=== PATIENT | female | born 1990 | race Caucasian/White ===

== ENCOUNTER 2016-11-14 21:34 | Emergency (ER) | payer OTHER ==
[~2016-11-14] VITALS: Ht 172.7 cm; Wt 76.8 kg
[2016-11-14 21:53] VITALS: BP 123/63; PULSE 98; RESP 16; O2SAT 98
--- NOTE | 2016-11-14 22:35 | ED.REPORT ---
HPI-General Illness Date of Service Nov 14, 2016 ED Provider: Dr. Frederick Hanley M.D. A 26 year old female at 17 weeks with a history of preeclampsia in prior and reactive airways disease as an infant presents to the ED with lightheadedness onset 16:30 today. Associated symptoms include nausea, diaphoresis, shortness of breath, and generalized weakness. The patient denies recent fever, cough, or vomiting. She measured her blood glucose level at 74 and her BP at 111/64 at onset of her symptoms. The patient then measured her blood glucose at 84 at 21:30 after eating. The patient does not normally have problems with her blood glucose levels but she occasionally becomes lightheaded with hypoglycemia. She has not had similar symptoms during previous pregnancies. Nursing Notes Stated Complaint: 17 WEEKS , BLOOD SUGAR LOW, FEELS OFF Chief Complaint: General Complaint Nursing Notes Reviewed: Yes Allergies: Coded Allergies: No Known Allergies (Unverified , 11/14/16) General Time Seen by MD: 22:35 Chief Complaint Other (Lightheadedness) Hx Obtained From: Patient Arrived By: Walk-in Sudden in Onset?: Yes Onset Occurred: 5 - 8 hours ago Symptom Duration: Since onset Severity: Current: No pain currently Severity: Maximum: No pain Associated with: Reports: Nausea, Shortness of breath, Weakness, Denies: Fever, Vomiting Pertinent Negative: Relieved by nothing Recent Healthcare: No recent doctor visit Similar Sx Previous: No Past Medical History Past Medical History Preeclampsia in first Hx of reactive airways disease as an Past Surgical History None reported Smoking History Former Smoker Social History Other Social History: Good social support Ambulatory Status Independent Review of Systems Full Review of Systems Constitutional: Reports: Weakness - generalized, Denies: Fever Respiratory: Reports: Shortness of breath, Denies: Non-productive cough GI: Reports: Nausea, Denies: Vomiting Skin: Reports Diaphoresis Neurologic: Reports: Lightheaded Complete sys rev & neg: except as marked. Physical Exam Vital Signs Vital Signs Date Time Temp Pulse Resp B/P Pulse Ox O2 Delivery O2 Flow Rate FiO2 11/14/16 21:53 37.6 98 16 123/63 98 Initial VS: Reviewed Respiratory: Breath sounds normal, Clear to auscultation, No respiratory distress Cardiovascular: Regular rate & rhythm, Heart sounds normal Skin: Warm, Dry, No cyanosis Neurologic: Alert, Oriented, Nonfocal Psychiatric: Mood/affect normal, Behavior normal, Normal thought content General/Constitutional: Awake, Alert, No acute distress Head / Eyes: Atraumatic, Normocephalic, No scleral icterus, Conjunctiva NL ENT: Atraumatic, Airway patent, Mucous membranes moist, Pharynx NL, Tympanic membs NL, Ext aud canal NL Neck: Supple, Full range of motion, No adenopathy, Non-tender, No JVD Interpretation & Diagnostics URINE : Positive URINE DIPSTICK: 1.010 sp gravity 8 pH Normal Glucose Normal Urobilinogen Otherwise Negative Lab Results Interpretation Result Diagram: 11/14/16224711/14/162247 Test 11/14/16 22:48 11/14/16 23:30 White Blood Count 12.0th/mm3 (3.8-10.1) Red Blood Count 3.89mil/mm3 (3.90-5.20) Hemoglobin 11.8g/dL (12.0-15.6) Hematocrit 34.9% (35.0-46.0) Mean Corpuscular Volume 89.7fL (81-100) Mean Corpuscular Hemoglobin 30.3pg (27.0-35.0) Mean Corpuscular Hemoglobin Concent 33.8% (32.0-37.0) Red Cell Distribution Width 12.2% (12.3-15.4) Platelet Count 312bil/L (150-400) Neutrophils (%) (Auto) 64.6% (40-74) Lymphocytes (%) (Auto) 24.7% (14-46) Monocytes (%) (Auto) 7.1% (4-12) Eosinophils (%) (Auto) 3.0% (0-5) Basophils (%) (Auto) 0.3% (0-3) Band Neutrophils % 0% (1-5) Sodium Level 137mEq/L (134-144) Potassium Level 3.9mEq/L (3.5-5.2) Chloride Level 102mEq/L (97-108) Carbon Dioxide Level 23mmol/L (18-29) Blood Urea Nitrogen 10mg/dL (6-20) Creatinine 0.30mg/dL (0.57-1.00) Estimat Glomerular Filtration Rate 392mL/min (>59) Glucose Level 98mg/dL (60-99) Calcium Level 9.0mg/dL (8.5-10.1) Magnesium Level 1.8mg/dL (1.6-2.6) Total Bilirubin 0.2mg/dL (0.0-1.2) Aspartate Amino Transf (AST/SGOT) 21U/L (0-50) Alanine Aminotransferase (ALT/SGPT) 18U/L (0-32) Alkaline Phosphatase 47U/L (25-150) Total Protein 6.8g/dL (6.4-8.4) Albumin 3.8g/dL (3.4-5.0) Hold Aguilar Top Tube Received (Received) Urine Color Yellow (YELLOW) Urine Appearance Hazy (CLEAR,HAZY) Urine pH 7.5 (5.0-8.0) Urine Specific [place] 1.015 (1.003-1.035) Urine Protein Negativemg/dL (NEG,TRACE) Urine Glucose (UA) Negativemg/dL (NEGATIVE) Urine Ketones Negativemg/dL (NEGATIVE) Urine Occult Blood Negative (NEGATIVE) Urine Nitrite Negative (NEGATIVE) Urine Bilirubin Negative (NEGATIVE) Urine Urobilinogen Normalmg/dL (NORMAL) Urine Leukocyte Esterase Negative (NEGATIVE) Urine RBC 0-2/hpf (0-2) Urine WBC 0-5/hpf (0-5) Urine Epithelial Cells Few/hpf (NONE-MOD) Urine Crystals Amorphous phosphates Urine Bacteria Few/hpf (NONE-FEW) Urine Hyaline Casts None/lpf (NONE) Urine Granular Casts None seen (NONE SEEN) Urine Waxy Casts None seen (NONE SEEN) Urine Red Blood Cell Casts None seen (NONE SEEN) Urine White Blood Cell Casts None seen (NONE SEEN) Urine Mucus None seen (None Seen) Urine Trichomonas None seen (NONE SEEN) Urine Yeast None (NONE SEEN) Urinalysis Comment None Urine Culture Reflexed Not indicated Re-Eval/Medical Decision Med Decision/Clinical Course 26-year-old with a vague sense of malaise and weakness, took her sugar with a borrowed a glucometer and found to be seventy-four. She was defiantly normal at that point but decided that her "low sugar" was the source of her symptoms. Source or a malaise is not totally clear, but she had just eaten and may in fact have had a decline in her sugar from a high level to a normal level. She has no diabetes no other risk factors and no reason to have hypoglycemia's specifically. Urinalysis was done looking for UTI and this was negative. No other findings on exam or history. Home for follow up with OB and PCP. Discharged in stable condition. Time of Eval: 23:33 Patient Status: Condition improved Re-Evaluation/Progress Note: Discussed with patient lab results, diagnosis, and plan for discharge. Follow-up and return to the ER instructions given. Patient agrees with plan for care and all questions were addressed. Counseled Regarding: Diagnosis, Lab results, Need for follow-up, When/why to return to ED Discharge & Departure Shift Change Sign-Out Response to Therapy: Improved Primary Impression: Discomfort during Disposition: Home Discharge Condition All VS Reviewed: Yes Condition: Improved Additional Instructions: We suggest small frequent feedings, and avoidance of simple sugars. Follow-up with your doctor in the office. Here urinalysis is negative for infection. Return if any immediate issues. Referrals: Rajinder Damian MD (PCP) [place] Attestation Portions of this note were transcribed by Negra Ernst. I, Dr. Hanley, personally performed the history, physical exam, and medical decision-making; I reviewed and confirmed the accuracy of the information in the transcribed note. Signed by: Matteo Vasquez, 11/15/2016, 00:20 copies to: Rajinder Damian MD, Christopher W MD Nov 14, 2016 22:35 NEGRA ERNST Nov 14, 2016 23:00
[2016-11-14 22:55] LABS: BASOPHILS % (AUTO) 0.3 % (0-3); MONOCYTES % (AUTO) 7.1 % (4-12); Mean Corpuscular Hemoglobin 30.3 pg (27.0-35.0); Mean Corpuscular Volume 89.7 fL (81-100); NEUTROPHILS % (AUTO) 64.6 % (40-74); Platelet Count 312 bil/L (150-400)
[2016-11-14 23:27] LABS: Magnesium 1.8 mg/dL (1.6-2.6)
[2016-11-14 23:38] LABS: APPEARANCE,URINE HAZY (CLEAR,HAZY); COLOR,URINE YELLOW (YELLOW); OCCULT BLOOD,URINE NEGATIVE (NEGATIVE); PH,URINE 7.5 (5.0-8.0); UROBILINOGEN,URINE NORMAL (NORMAL)
== END 2016-11-14 23:34 | disposition home or self-care (01) ==
LOC: SED 21:34
DX: O26.92 Pregnancy related conditions, unspecified, second trimester (principal); Z87.891 Personal history of nicotine dependence; Z87.09 Personal history of other diseases of the respiratory system; Z87.59 Personal history of other complications of pregnancy, childbirth and the puerperium; Z3A.17 17 weeks gestation of pregnancy

== ENCOUNTER 2017-04-17 02:44 | Inpatient (IN) | payer OTHER ==
[~2017-04-17] VITALS: Ht 170.2 cm; Wt 94.8 kg
[2017-04-18] MEDS ORDERED: Oxytocin 30 Units/500 mL LR 30 UNITS in IV Premix 1 EACH IV PRN ×2 (07:40→19:10)
[2017-04-18] MEDS ORDERED: Hemorrhage Kit, Post Partum XX ONE (07:40)
[2017-04-18] MEDS ORDERED: Sodium Chloride LOK Flush 10 mL Syringe IVFLUSH PRN ×2 (07:40)
[2017-04-18] MEDS ORDERED: Ondansetron 2 mg/mL 2 mL Inj IVPUSH PRN ×2 (07:40→23:15)
[2017-04-18] MEDS ORDERED: fentaNYL-PF 50 mCg/mL 2 mL Inj IVPUSH PRN (07:40)
[2017-04-18] MEDS ORDERED: diphenhydrAMINE 50 mg Capsule PO PRN (07:40)
[2017-04-18] MEDS ORDERED: Methylergonovine 0.2 mg/mL Inj IM PRN (07:40)
[2017-04-18] MEDS ORDERED: Carboprost 250 mCg/mL Inj IM PRN (07:40)
[2017-04-18] MEDS ORDERED: Oxytocin 10 Unit/mL Inj IM PRN (07:40)
[2017-04-18] MEDS ORDERED: Penicillin G K Inj 5,000,000 UNITS in Dextrose 5% Minibag Plus 100 ML IV ONE (07:40)
[2017-04-18] MEDS ORDERED: Multivit-Miner-Folic Acid-Iron Tablet PO SCH (08:30)
[2017-04-18 08:38] LABS: Mean Corpuscular Hemoglobin 28.9 pg (27.0-35.0); Mean Corpuscular Volume 88.5 fL (81-100)
[2017-04-18] MEDS: Misoprostol 25 mCg/0.25 Tablet VAGINAL SCH ×2 (09:04→12:36)
[2017-04-18] MEDS: Penicillin G K Inj 3,000,000 UNITS in IV Premix 1 EACH IV SCH (11:00)
--- NOTE | 2017-04-18 19:34 | PROG NOTE ---
[address] [address] PROGRESS NOTE PATIENT: BRENNAN OLIVA : 1990 MR#: [id number] ADMIT: 04/18/2017 JOB ID: [id number] DATE: 04/18/2017 I returned a little after 6 p.m. and rechecked the patient. She is having some occasional contractions, nothing particularly strong. Her cervical examination shows her to be a centimeter dilated, 60% to 70% effaced, -3 station, vertex position. heart tracing remains a category 1. I discussed options with patient which include simply going home and waiting, overnight Cervidil, or balloon Ma catheter. She notes her 2nd was successfully induced with a balloon Ma catheter and she would like to proceed with the same intervention. ASSESSMENT: 1. at 39-2/7 weeks. 2. Induction arranged for history of HELLP (hemolysis, elevated liver enzymes, low platelet count) syndrome at term with her first and possible history of shoulder dystocia with her second. PLAN: Reviewed risks and benefits of the procedure. Patient placed in stirrups. Sterile speculum inserted. Cervix identified and cleaned with Betadine. A double balloon Ma catheter was, after several attempts and repositioning, successfully inserted and each balloon inflated to 80 cc total. Patient tolerated the procedure very well. heart tracing remained reassuring throughout. H and H returned at 11.1 and 34.0, platelets adequate at 304. Blood type O-positive, antibody screen negative. Discussed plan to leave balloon catheter in for 12 hours, then start oxytocin. If the balloon falls out sooner, we can start oxytocin at that time. I encouraged nursing to start GBS prophlyaxis antibiotics once she begins regular contractions. MTDD
[2017-04-18] MEDS: Acyclovir 400 mg Tablet PO SCH (21:12)
[2017-04-18] MEDS ORDERED: Penicillin G K 5,000,000 UNITS/100 ML D5W IV ONE ×2 (22:25)
[2017-04-18] MEDS: Lactated Ringer's 1,000 ML IV PRN (22:59)
[2017-04-18] MEDS ORDERED: Lactated Ringer's 1,000 ML IV SCH (23:12)
[2017-04-18] MEDS ORDERED: Lactated Ringer's 500 ML IV ONE (23:12)
[2017-04-18] MEDS ORDERED: Atropine 1 mg/10 mL (Code) Syringe IVPUSH PRN (23:15)
[2017-04-18] MEDS ORDERED: fentaNYL 2 mCg/mL-Bupiv 0.125% 100 ML EPIDURAL SCH (23:15)
[2017-04-18] MEDS ORDERED: EPHEDrine Sulfate 50 mg/mL Inj IVPUSH PRN (23:15)
--- NOTE | 2017-04-18 23:16 | PCM.HPANE ---
Patient Data Surgeon Admitting Provider:Rajinder Damian MD Attending Provider:Rajinder Damian MD Primary Care Physician:Rajinder Damian MD Other Provider:Everette Ardon Anesthesia Reason for Visit Induction INDUCTION Ht/WT & BMI Body Mass Index Allergies Coded Allergies: No Known Allergies (Unverified , 11/14/16) Past Anesthesia History Anesthesia History: Denies:: Abnormal Airway, Anesthesia Reactions, Difficult Intubation, Fam Anesthesia Reaction, Fam Malignant Hypertherm, Malignant Hyperthermia Diabetes History Hx Diabetes?: No Medications Hypertension Medication: No Home Meds Incl Beta Hang: No History History of ENT Problems?: No HEENT History: Denies:: Abnormal Airway Cataracts Difficult Intubation Dysphagia Glaucoma Hearing Problem Sinus Problem TMJ Denture Type: None Teeth Condition: Within Normal Limits Hx of Heart Problems?: No Cardiovascular History: Denies:: AICD Abdominal Aortic Aneurism Atrial Fibrillation Cardiac Surgery Chest Pain Congestive Heart Failure Coronary Artery Disease Edema Heart Murmur Hypertension Irregular Heartbeat Pacemaker Peripheral Vascular Rheumatic Fever Thrombophlebitis Valvular Heart Disease Hx of Respiratory Problem?: No Respiratory History: Denies:: Asthma COPD Chest Surgery Cough Dyspnea Emphysema Hemoptysis Oxygen Administration Pneumonia Pulmonary Embolism Tuberculosis Use of C-PAP Machine Use of Inhalers / NEBS Hx Neurologic Problems?: No Hx of GI Problems?: No Hx of Problems?: No Female Hx: Positive for:: Currently Hx Musculoskeletal Problems?: No Hx of Psycho/Social Problems?: No Hx Surgeries?: No Hx Alcohol Use: NoHx Substance Use: No Smoking Status: Former Smoker Stop/Bang Risk Assessment Category Category 1A: Patient has history of documented sleep apnea, and HAS NOT received any narcotic, sedative or anesthesia administration during this stay. Category 1B: Patient has history of documented sleep apnea, and HAS received any narcotic , sedative or anesthesia administration during this stay Category 2: Patient has SUSPECTED Obstructive Sleep Apnea, and HAS received any narcotic , sedative or anesthesia administration during this stay. Category 3: Patient has SUSPECTED Obstructive Sleep Apnea and HAS NOT received narcotic, sedative or anesthesia administration during this stay. Category 4: Outpatient in Procedural Areas with known sleep apnea or who screen positive for High Risk via the STOP/BANG questionnaire. Exam Exam General Appearance: Alert, Oriented X3 HEENT/AIRWAY: MP 2, Neck Movement (FROM) Lungs: Clear to Auscultation, Clear to Percussion Heart: Exam Unremarkable, Regular Rate/Rhythm Meds/Labs/Diagnostics Admission Meds Current Medications Misoprostol (Cytotec) 25 mcg Q4H VAGINAL Last administered on 04/18/17 12:36; Start 04/18/17 at 07:40; Stop 04/18/17 at 19:11; Status DC Acyclovir 400 mg 400 mg BID PO Last administered on 04/18/17 21:12; Start at 08:30 Penicillin G Potassium/ Dextrose/Water (Pfizerpen Inj/ D5W Minibag Plus) 100 ml @ 100 mls/hr ONCE ONCE IV Last administered on 04/18/17 23:00; Start 04/18/17 at 22:25; Stop 04/18/17 at 23:24 Labs Test 04/18/17 08:30 White Blood Count 12.0th/mm3 (3.8-10.1) Red Blood Count 3.84mil/mm3 (3.90-5.20) Hemoglobin 11.1g/dL (12.0-15.6) Hematocrit 34.0% (35.0-46.0) Mean Corpuscular Volume 88.5fL (81-100) Mean Corpuscular Hemoglobin 28.9pg (27.0-35.0) Mean Corpuscular Hemoglobin Concent 32.6% (32.0-37.0) Red Cell Distribution Width 13.0% (12.3-15.4) Platelet Count 304bil/L (150-400) Plan Impression Patient chart reviewed, patient interviewed and anesthestic plan with risks, benefits, and alternatives discussed, and informed consent obtained. Marcos Hall MD Apr 18, 2017 23:16
[2017-04-19] MEDS: Lactated Ringer's 1,000 ML IV PRN (00:15)
[2017-04-19] MEDS ORDERED: Sodium Chloride LOK Flush 10 mL Syringe IVFLUSH SCH (00:30)
[2017-04-19] MEDS: Penicillin G K Inj 3,000,000 UNITS in IV Premix 1 EACH IV SCH ×2 (03:00→07:10)
[2017-04-19] MEDS: Acyclovir 400 mg Tablet PO SCH (07:14)
--- NOTE | 2017-04-19 11:04 | PROG NOTE ---
[address] [address] PROGRESS NOTE PATIENT: BRENNAN OLIVA : 1990 MR#: [id number] ADMIT: 04/18/2017 JOB ID: [id number] DATE: 04/19/2017 SUBJECTIVE: The patient had a balloon Ma catheter successfully placed yesterday at dinner time, it fell out about 11 p.m. and she was found to be 5 cm dilated. IV oxytocin augmentation was then started, along with antibiotics for GBS positive status. Tocometer is not picking up contractions well externally. She did request an epidural at the time of being 5 cm and so, remains comfortable. Her exam is below. PHYSICAL EXAMINATION: Blood pressure 131/77. Alert gravid woman quite comfortable with her epidural. Cervical examination shows her to be 6 cm dilated, 75% effaced, -3 station, midposition and soft cervix, vertex. Bulging bag is noted and artificially ruptured with return of clear fluid. IUPC is also placed. heart tracing shows a category 1/reactive tracing with a baseline in the 140s and numerous accelerations. After placing IUPC, tocometer shows adequate contractions every 2-4 minutes. ASSESSMENT: 1. Gravid at 39 and 3/7 weeks. 2. Group B streptococcus positive, now adequately treated with greater than two doses of penicillin. 3. Induction, chosen because of a history of hemolysis, elevated liver enzymes, low platelet syndrome with her first and a possible shoulder dystocia with her second. 4. Successful cervical ripening with two doses of misoprostol and a balloon Ma catheter. However, she has not changed her cervix overnight despite oxytocin augmentation. I suspect intact membranes are keeping the head from dilating the cervix. 5. Herpes simplex virus 2 history, on suppressive acyclovir. No external lesions noted on several exams. PLAN: Membranes ruptured artificially without difficulty. Copious amounts of clear fluid returned. descent was noted promptly, and the patient felt a little more pressure afterwards. IUPC placed without difficulty. Continue oxytocin augmentation and otherwise, expectant management at this point.
[2017-04-19] MEDS ORDERED: Lactated Ringer's 1,000 ML IV SCH (14:41)
[2017-04-19] MEDS ORDERED: Benzocaine (Dermoplast) 20% 60 Gm Spray TOPICAL PRN (14:45)
[2017-04-19] MEDS ORDERED: Carboprost 250 mCg/mL Inj IM PRN (14:45)
[2017-04-19] MEDS ORDERED: Methylergonovine 0.2 mg/mL Inj IM PRN (14:45)
[2017-04-19] MEDS ORDERED: LANOlin HPA 7 Gm Ointment TOPICAL PRN (14:45)
[2017-04-19] MEDS ORDERED: Hemorrhage Kit, Post Partum XX ONE (14:45)
[2017-04-19] MEDS ORDERED: Oxytocin 30 Units/500 mL LR 30 UNITS in IV Premix 1 EACH IV PRN (14:45)
[2017-04-19] MEDS ORDERED: Oxytocin 10 Unit/mL Inj IM PRN (14:45)
[2017-04-19] MEDS ORDERED: HYDROcodone-APAP 5-325 mg Tablet PO PRN (14:45)
[2017-04-19] MEDS ORDERED: Witch Hazel-Glycerin Pads TOPICAL PRN (14:45)
--- NOTE | 2017-04-19 14:53 | OP ---
[address] [address] OPERATIVE REPORT PATIENT: BRENNAN OLIVA : 1990 MR#: [id number] ADMIT: 04/18/2017 JOB ID: [id number] DELIVERY NOTE: DATE OF DELIVERY: 04/19/2017 DELIVERY POSITION: HARIKA. DELIVERY WEIGHT: 3618 grams, male. APGARS: 7 and 9. UMBILICAL CORD: Three-vessel cord normal length and appearance. PLACENTA: Normal appearance central cord insertion. No evidence of retained fragments. ESTIMATED BLOOD LOSS: 300 cc. LACERATIONS: None. ANESTHESIA: Epidural. COMPLICATIONS: None. NARRATIVE DETAILS: Patient felt an increasing urge to push and was found to be completely dilated. She pushed and effectively brought the head down in HARIKA position. Head delivered. No nuchal cord was identified. Body was slow to deliver but there was no true shoulder dystocia. was handed up to mother and Nursing after delivery. Cord clamped after a 2 minute delay and cord blood collected and sent. Perineum was inspected and showed no evidence of tears. Placenta delivered with gentle traction on the cord after several more minutes, there were a few gushes of blood which rapidly slowed with IV oxytocin and fundal massage and her fundus is firm. The patient plans to breastfeed. She is stable post delivery. Sponge and needle counts are correct. I will continue her on iron twice a day as her initial H and H was 11.1 and 34.0. Please note I will be on vacation for the remainder of this week. Dr. Gillian Flores will see the patient for me tomorrow and is on-call effective now. Outpatient followup can be arranged through my office at [phone], with Dr. Candi Barone seeing patients in my office 04/21-04/25/17 (to page her call the main office number for contact details). ADRIA
[2017-04-19] MEDS: Ascorbic Acid 500 mg Tablet PO SCH (16:58)
[2017-04-20 06:50] LABS: Mean Corpuscular Hemoglobin 28.7 pg (27.0-35.0); Mean Corpuscular Volume 91.2 fL (81-100)
[2017-04-20] MEDS: Ascorbic Acid 500 mg Tablet PO SCH (07:48)
--- NOTE | 2017-04-20 09:28 | PCM.DC.OB ---
Obstetrical Discharge Summary Date of Service Apr 20, 2017 Date of hospital admission Apr 18, 2017 at 07:19 Date of Discharge: Apr 20, 2017 Providers Admitting Physician: Rajinder Damian MD Primary Care Physician: Rajinder Damian MD Attending Physician: Rajinder Damian MD Diagnosis at Time of Discharge 1. at 39+3 weeks with labor induction by wise balloon catheter, pitocin and AROM 2. Hx of HELLP syndrome with first 3. Hx of shoulder dystocia with second 4. + GBS with adequate penicillin treatment 5. Epidural analgesia 6 of LBF infant Problems: (1) Encounter for supervision of normal in third trimester Status: Acute ICD Code: Z34.93 (2) Encounter for full-term uncomplicated delivery Status: Acute ICD Code: O80 Brief History and Physical: Please see dictated notes by Dr. Damian on her admission, intrapartum progress and vaginal delivery. Hospital Course: Patient is a very pleasant 26 year old who was cared for during her , labor and delivery by Dr. Damian. She was brought in at 39 + 3 weeks for labor induction for the above reasons, and this was accomplished by wise balloon catheter placement, pitocin augmentation of labor, and AROM. She did receive and epidural and made good progress in labor. She was treated for chlamydia during the , and has been on acyclovir prophylaxis for HSV, with no outbreaks. She was positive for GBS and was adequately treated with penicillin during labor. She went onto of a LBM infant who weighed 8 lbs, and Apgars were 7 at one minute and 9 at 5 minutes. Baby was handed off to the maternal abdomen and delayed cord clamping was done. Placenta delivered intact with a 3 vessel cord. Mom's perineum was intact, and EBL at time of delivery was 300mls. In the , Mom has been frequently and they are bonding well with baby. She passed a large clot this morning after her shower. She has had moderate rubra lochia and is ambulating without and dizziness or other problems. VSS, with BP 10 -115/ 48 to 60, HR 87 to 90. She is afebrile. she has been voiding, but has not stooled x 48 hours. On exam,she appears well. Chest is clear thruout, HS NSR with no murmurs. Breasts are soft, nipples intact and colostrum is expressable. Fundus is firm one FB < umbilicus. Perineum is not swollen. She has mild ankle edema. Hgb on admit was 11.1, and is down to 8.5. Hematocrit was 34 and is down to 27. She will be continuing iron and colace. Disposition Home Follow-up plan She will see Dr. Damian in about 6 weeks for exam and to discuss control plans. She will call his office in the interim with any questions or concerns. Discharge Diet: No restrictions Discharge Activity-General: Pelvic Rest for 6 weeks, Pelvic Rest, Try not to overdue, Be up and about, Balance rest and activity, Activity as pain allows, Activity as energy allows Tammy Flores MD Apr 20, 2017 09:28
--- NOTE | 2017-04-20 09:33 | PCM.DIOB ---
Obstetrical Disch Instruction Date of Service: Apr 20, 2017 Dates of Hospitalization Date of Hospital Admission Apr 18, 2017 at 07:19 Providers Admitting Physician: Rajinder Damian MD Primary Care Physician: Rajinder Damian MD Attending Physician: Rajinder Damian MD Discharge Diagnosis Discharge Diagnosis 1. at 39+ 3 weeks with labor induction with wise balloon catheter, pitocin augmentation and AROM 2. Hx of HELLP syndrome with first 3. Hx of shoulder dystocia with second 4. + GBS adequately treated with penicillin 5. Epidural analgesia 6. of LBF infant Post Operative diagnosis same as the above Problems: (1) Encounter for supervision of normal in third trimester Status: Acute ICD Code: Z34.93 (2) Encounter for full-term uncomplicated delivery Status: Acute ICD Code: O80 Diet Discharge Diet: No restrictions Activity Discharge Activity-General: No restrictions, Pelvic Rest for 6 weeks, Try not to overdue, Be up and about, Balance rest and activity, Activity as pain allows , Activity as energy allows Dressing and Incisional Care Hygiene: May shower, Perineal care, Sitz bath, Dermoplast spray, Witch [place] pads, Ice Follow Up Plan Follow-up Provider (F9): Rajinder Damian MD Follow-up appointment: Weeks (6) Call your provider for: Fever or Chills, Shortness of breath, Heavy vaginal bleeding, Epigastric pain, Excessive constipation, Vaginal discomfort, Red painful breasts Tammy Flores MD Apr 20, 2017 09:33
[2017-04-20] MEDS ORDERED: Ascorbic Acid PO (09:35)
[2017-04-20] MEDS ORDERED: FERR-74 PO (09:35)
[2017-04-20] MEDS ORDERED: IBUP-1827 PO (09:35)
[2017-04-20] MEDS ORDERED: HYDR-4003 PO (09:35)
[2017-04-20] MEDS ORDERED: DOCU-41 PO (09:35)
[2017-04-20 10:42] VITALS: BP 102/68; PULSE 79; RESP 18
== END 2017-04-20 15:32 | disposition home or self-care (01) | DRG 560 ==
LOC: FBC 04-18 07:19
PROVIDERS: ADMIT Family Medicine; ATTEND Family Medicine
PROC: 3E0P7GC Introduction of Other Therapeutic Substance into Female Reproductive, Via Natural or Artificial Opening (ICD-10-PCS; 2017-04-18)
PROC: 10H07YZ Insertion of Other Device into Products of Conception, Via Natural or Artificial Opening (ICD-10-PCS; 2017-04-18)
PROC: 10E0XZZ Delivery of Products of Conception, External Approach (ICD-10-PCS; principal; 2017-04-19)
PROC: 10907ZC Drainage of Amniotic Fluid, Therapeutic from Products of Conception, Via Natural or Artificial Opening (ICD-10-PCS; 2017-04-19)
DX: O99.824 Streptococcus B carrier state complicating childbirth (principal); O98.52 Other viral diseases complicating childbirth; B00.9 Herpesviral infection, unspecified; Z3A.39 39 weeks gestation of pregnancy; Z37.0 Single live birth